=== PATIENT | male | born 1985 | race Caucasian/White ===

== ENCOUNTER 2024-10-24 11:26 | Emergency (ER) | payer MEDICAID ==
[~2024-10-24] VITALS: Ht 172.7 cm; Wt 92.0 kg
[2024-10-24 11:51] VITALS: BP 180/109; PULSE 82; RESP 16; TEMP 97.9; O2SAT 98
[2024-10-24] MEDS ORDERED: IBUP-2029 MT (13:45)
== END 2024-10-24 14:26 | disposition home or self-care (01) ==
LOC: ER 11:26
DX: S29.011A Strain of muscle and tendon of front wall of thorax, initial encounter (principal); M41.80 Other forms of scoliosis, site unspecified; Z98.890 Other specified postprocedural states; X58.XXXA Exposure to other specified factors, initial encounter; Y93.89 Activity, other specified; Y92.89 Other specified places as the place of occurrence of the external cause; Y99.8 Other external cause status
CPT/HCPCS: 71100; 99283